=== PATIENT | male | born 1995 | race Two or more races ===

== ENCOUNTER 2017-05-10 09:05 | Observation (INO) | payer SELFPAY ==
[~2017-05-10] VITALS: Ht 177.8 cm; Wt 95.4 kg
--- NOTE | ~2017-05-10 | US77 ---
[facility] A Service of [facility] RADIOLOGY TEXT RESULTS PATIENT: TEETEE DUVALL LOCATION: [facility] 315 : 93 UNIT #: [id number] AGE: [address]: Daniela Salter MD SEX: M ORDER DR: [id number] [facility]. [place], [place] [address] [id number] I MR#: [id number] Acc #: [id number] NAME: TEETEE DUVALL : 1995 SEX: M STUDY DATE/TIME: 05/10/2017 17:21 UN[facility]OM: [facility] STUDY DESCRIPTION: US Kidney Bilateral Complete Attending Physician: Daniela Salter M.D. Ordering Physician: Ed Ramses Barahona M.D. Primary Care Physician: No Primary Care Physician MEDICAL IMAGING REPORT This report is preliminary unless electronic signature is present EXAMINATION Bilateral renal ultrasound. DATE 05/10/2017 HISTORY Abdominal pain for 2 days with nausea and vomiting. Acute renal insufficiency. BUN 32. GFR 17.6. COMPARISON CT abdomen and pelvis without contrast, 05/10/2017 at 11:52. FINDINGS Right kidney measures 5.4 x 11.3 x 5 cm. The left kidney measures 10.5 x 5.5 x 4.9 cm. Both kidneys maintain normal cortical thickness and echotexture. No cystic or solid renal mass, shadowing stone or hydronephrosis is seen on either side. Urinary bladder is distended with fluid and appears unremarkable. IMPRESSION Normal bilateral renal ultrasound. No hydronephrosis. Dictated by... Meghan Garcia M.D. THIS IS AN ELECTRONICALLY VERIFIED REPORT Meghan Garcia M.D. at 05/13/2017 8:[address] [facility]/andrey TD: 05/11/2017 13:43 JOB #: [id number] [facility] A Service of [facility] RADIOLOGY TEXT RESULTS PATIENT: TEETEE DUVALL LOCATION: [facility] 315 : 93 UNIT #: [id number] AGE: [address]: Daniela Salter MD SEX: M ORDER DR: MEDICAL IMAGING REPORT Page 1 of 1 COPY
--- NOTE | ~2017-05-10 | CT4 ---
[facility] A Service of [facility] & [facility] RADIOLOGY TEXT RESULTS PATIENT: TEETEE DUVALL LOCATION: [facility] 315-01 : [birth year] UNIT #: [id number] AGE: [address]: Daniela Salter MD SEX: M ORDER DR: [id number] [facility]. [place], [place] [address] [id number] I MR#: [id number] Acc #: [id number] NAME: TEETEE DUVALL : 1995 SEX: M STUDY DATE/TIME: 05/10/2017 11:52 UNIT: [facility] PCU ROOM: 315 STUDY DESCRIPTION: CT Abd and Pelv Wo Cont Attending Physician: Elba Leon M.D. Ordering Physician: Lucila Narvaez A.P.R.N. Primary Care Physician: No Primary Care Physician MEDICAL IMAGING REPORT This report is preliminary unless electronic signature is present EXAM CT abdomen and pelvis without contrast, 05/10/2017, 1152 hours. CLINICAL HISTORY 21-year-old man with complaint of 3-day history of right lower quadrant abdominal pain with nausea and vomiting. COMPARISON None TECHNIQUE Helical noncontrasted images were obtained from the lung bases through the pubic symphysis without intravenous contrast. Oral contrast was administered. Sagittal and coronal reconstructions were performed. Total exam DLP 1054 mGy-cm. This CT exam was performed with one or more of the following radiation dose reduction techniques: automatic exposure control, adjustment of mA and/or kV according to patient size, and iterative reconstruction. FINDINGS The lung bases are clear. There are no effusions. The distal esophagus is normal. Noncontrasted images through the abdomen demonstrate minimal low attenuation in the liver adjacent the falciform ligament, most consistent with focal fatty change. No other liver lesion is seen. The spleen and pancreas are normal. The gallbladder is distended without evidence of sludge, stones, or wall thickening. The adrenal glands are normal. The kidneys have a normal noncontrasted appearance. There are no renal or ureteral calculi. The bladder is normal. The stomach is not well opacified or distended but does appear normal. [facility] A Service of [facility] & [facility] RADIOLOGY TEXT RESULTS PATIENT: TEETEE DUVALL LOCATION: [facility] 315-01 : [birth year] UNIT #: [id number] AGE: [address]: Daniela Salter MD SEX: M ORDER DR: The small bowel is fairly well opacified. There a few areas where the small bowel is not well distended and the wall appears slightly prominent but I believe this is due to lack of distension rather than true underlying pathology. The terminal ileum, cecum, and appendix are normal. There is air and contrast material within the appendix. The colon is fairly well opacified. There is no colonic wall thickening. The sigmoid colon and rectum are unopacified. There is no definite wall thickening or distension. CT pelvis demonstrates a normal appearance to the bladder, seminal vesicles, and prostate. IMPRESSION 1. No definite acute findings in the abdomen or pelvis. 2. The gallbladder is distended with no stones, sludge, or wall thickening. The bile ducts and pancreas are normal. 3. The terminal ileum, cecum and appendix are normal. 4. There are loops of small bowel and portions of the right colon which contain oral contrast and are not completely well distended and give the appearance of wall thickening. I would favor that this is simply due to lack of distension/peristalsis rather than true bowel wall thickening although this is difficult to discriminate. Dictated by... Diandra Rodriguez M.D. THIS IS AN ELECTRONICALLY VERIFIED REPORT Diandra Rodriguez M.D. at 05/11/2017 3:27 PM [facility]/supa TD: 05/10/2017 17:23 JOB #: [id number] MEDICAL IMAGING REPORT Page 1 of 1 COPY
--- NOTE | ~2017-05-10 | CO ---
Unit #: [id number] #: [id number] Patient: TEETEE DUVALL [id number] [address] [place], [place] [address] [id number] I MR#: [id number] NAME: TEETEE DUVALL ROOM: 315 Age: 21 Sex: M Admission Date: 05/10/2017 : 1995 Attending Physician: Daniela Salter M.D. Primary Care Physician: Primary Care Physician No CONSULTATION REPORT REASON FOR CONSULTATION Acute kidney injury. The patient is 21-year-old male with a past medical history not significant except for the marijuana use. Otherwise healthy worker, who works in a construction, who presented with a 2-day history of nausea, vomiting, and poor intake along with weakness and he was found to have acute kidney injury for which we are consulted. HISTORY OF PRESENT ILLNESS The patient initially from [place] and had been in [facility] for 4 years. He works as a construction equipment mechanic helper. He is otherwise a healthy individual with no history of alcohol or smoking, but he does smoke marijuana. For the last two days, he had been having very poor intake due to vomiting and also complained of headache with a blurry vision. He has been feeling very weak and also some tightness in the muscle, for which he came to the hospital and he was found to have acute kidney injury. He denies any regular NSAID use, neither rashes or joint pain. Does accept of decreasing urine output. No history of hematuria or frothy urine in the past. No history of group home antibiotic use or any history of obstruction in the past. In the ER, he was found to have creatinine of 4.4, BUN of 32, potassium of 3.6, bicarbonate of 25, hemoglobin 13.6, platelets of 432. REVIEW OF SYSTEMS As discussed, complained of nausea and vomiting. He had around 8 to 9 episodes yesterday, which is much better. No history of chest pain. No history of shortness of breath. No history of unusual rashes. No joint pain. Does complain of headache. No weakness. No history of any ENT problem. No history of cough. No history of leg swelling. No history of any psych issues. PHYSICAL EXAMINATION VITAL SIGNS: Blood pressure 117/74, pulse was 88, respirations 16, temperature 99.3. GENERAL: Awake, alert, and oriented to time, place, and person, not in distress. RESPIRATORY: Bilaterally clear lungs. CARDIOVASCULAR: S1 heard and S2 heard. No murmur. ABDOMEN: Soft. Nontender. Nondistended. EXTREMITIES: May be trace edema. NEUROLOGIC: Grossly intact. DIAGNOSTIC STUDIES LABORATORY RESULTS: Glucose 141, BUN 32, creatinine 4.4, sodium 134, Unit #: [id number] #: [id number] Patient: TEETEE DUVALL potassium 3.6, chloride 88, bicarb 25, albumin 6.3. LFTs normal. Lipase 11, hemoglobin is 18.6, WBC 12.3, platelets 432. ASSESSMENT 1. Acute kidney injury, nonoliguric versus chronic kidney disease. Very likely he does have a prerenal component and very likely also ATN due to prolonged prerenal. His lab consistent with hemoconcentration with a very high hemoglobin, thrombocytosis and also hypercalcemia. 2. Hypercalcemia. 3. Hyponatremia. 4. Polycythemia. 5. Marijuana use. PLAN The patient looked to be dehydrated on examination as well as laboratory aguilera very hemoconcentrated with hypercalcemia, polycythemia, and thrombocytosis. Also history of nausea and massive vomiting for the last 2 days. Complains of dizziness and lightheadedness, consistent with orthostatic too. We will continue the IV fluids. He had gotten a bolus in the ER. We will continue normal saline 100 mL an hour. Currently hemodynamically stable. Strict input and output monitoring. The patient never had any kidney disease in the past that he is aware of, actually never had seen a doctor before. No family history of kidney problem though. No hypertension or diabetes in the family, but concern given his history of construction equipment mechanic helper and from the [place], might have some degree of chronic kidney disease in the past. We will evaluate his response with IV fluid resuscitation. We will check the urine. We will also workup for any underlying lupus, vasculitis, hepatitis. Also comprehensive studies to see if there is any blood, protein, rbc in the urine. Protein creatinine ratio. Ultrasound of the kidney. We will evaluate again tomorrow. If renal function does not improve with IV fluids or any reflux in the urinalysis or the serological workup that we might have to consider the biopsy too. Discussed with him in detail with the help of medical interpreter. He verbalized understanding. We will continue to follow strictly. Discussed with RN. Dictated by... Keyla Bridges/minh TD: 05/11/2017 13:45 JOB #: [id number] CONSULTATION REPORT Page 1 of 1 X MARLENA KELLER MD X CONSULTATION REPORT
--- NOTE | ~2017-05-10 | DS ---
Unit #: [id number] #: [id number] Patient: TEETEE DUVALL [id number] [place], [place] [address] [id number] I MR#: [id number] NAME: TEETEE DUVALL ROOM: 315 Age: 21 Sex: M Admission Date: 05/10/2017 : 1995 Discharge Date: 05/11/2017 Attending Physician: Daniela Salter M.D. Primary Care Physician: No Primary Care Physician DISCHARGE SUMMARY PRINCIPAL DIAGNOSES 1. Acute kidney injury, prerenal now resolved. Discharge creatinine 1.3. 2. Polycythemia secondary to severe dehydration now resolved. 3. Hypercalcemia secondary to severe dehydration now resolved. 4. Leukocytosis secondary to dehydration now resolved. 5. Marijuana use. CONSULTANTS [facility]. PROCEDURES 1. CT scan of abdomen and pelvis on 05/10/2017 with no acute findings. Gallbladder is distended without evidence of stones, sludge or wall thickening. Loops of small bowel and portions of right colon contain oral contrast. Not completely well distended. 2. Renal ultrasound, which was normal. No evidence of hydronephrosis. CLINICAL HISTORY AND HOSPITAL COURSE Mr. Duvall is a nice 21-year-old , Romansh speaking male who presents to the ER with abdominal pain and headache. In the emergency department, the patient is found to have a creatinine of 4.4 in addition to several other electrolyte abnormalities including hypercalcemia and elevated albumin and elevated white blood cell count. He was also found to have polycythemia. 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 He was subsequently admitted for further evaluation. Patient was placed on IV fluids and nephrology was consulted. This morning after hydration overnight, patient's creatinine has gone from 4.4 down to 1.3 and all of his associated complaints of fatigue, headaches, abdominal pain has resolved. He is tolerating a diet. Bilateral renal ultrasound was unremarkable. His elevated creatinine was simply secondary to dehydration, given creatinine is now normal. I think he can be safely discharged home. I have encouraged him to drink plenty of water at work. DISCHARGE CONDITION Stable. DISCHARGE STATUS Discharge to home. DISCHARGE MEDICATIONS None. Unit #: [id number] #: [id number] Patient: TEETEE DUVALL DISCHARGE INSTRUCTIONS Patient was instructed to follow a regular diet and to increase his food intake at work. He can increase his activity as tolerated. FOLLOWUP Patient can followup on a p.r.n. basis. Dictated by... Daniela Salter M.D. KRISTINA/david TD: 05/13/2017 09:26 JOB #: [id number] DISCHARGE SUMMARY Page 1 of 1 X Daniela Salter MD X DISCHARGE SUMMARY
--- NOTE | ~2017-05-10 | HP ---
Unit #: [id number] #: [id number] Patient: TEETEE DUVALL [id number] [place], [place] [address] [id number] MR#: [id number] NAME: TEETEE DUVALL ROOM: 315 Age: 21 Sex: M Admission Date: 05/10/2017 : 1995 Attending Physician: Teddy Leon M.D. Primary Care Physician: No Primary Care Physician HISTORY AND PHYSICAL CHIEF COMPLAINT Abdominal pain. HISTORY OF PRESENT ILLNESS The patient is a 21-year-old Croatian speaker, presented to the emergency room complaining of the abdominal pain for two says associated with a headache. The patient also complains of the painful urination with exertion. The patient was found to have an acute kidney injury with a creatinine of 4.4 and BUN 32 and is being admitted for the above reasons. The patient also states patient smokes marijuana and denies any IV drug abuse, denies any fever, denies any chills, denies any chest pain. The patient is being admitted for the above reasons. PAST MEDICAL HISTORY None. PAST SURGICAL HISTORY None. HOME MEDICATION None. ALLERGIES No known drug allergies. SOCIAL HISTORY No history of smoking cigarettes or drinking alcohol, positive for marijuana. FAMILY HISTORY Reviewed and none. REVIEW OF SYMPTOMS Positive for abdominal pain. Positive for decreased urination. Denies any fever, denies any chest pain and other systems have been reviewed and all other systems were negative. PHYSICAL EXAMINATION GENERAL APPEARANCE: On examination patient is lying on a bed not in acute distress. VITAL SIGNS: Temperature is 98.9, pulse 104, respiratory rate 18, blood pressure 140/100, sating 100% at room air. HEENT: Head atraumatic, normocephalic. Pupils equal, round and reacting Unit #: [id number] #: [id number] Patient: TEETEE DUVALL to light and accommodation. Extraocular movements are intact. NECK: Supple. LUNGS: Decreased air entry at the bases. HEART: Regular rate and rhythm. ABDOMEN: Soft, positive bowel sounds. Denies any flank pain. NEUROLOGIC: Alert, awake, oriented. No gross focal motor deficit. DIAGNOSTIC STUDIES LABORATORY DATA: Sodium 134, potassium 3.6, chloride 88, bicarb 25, glucose 141, BUN 32, creatinine 4.4, calcium is 11 and albumin is 6.3, lipase 11, amylase 32 and UA shows 1+ urine bacteria and 50 to 100 urine hyalin crystals and WBC is 12.3, hemoglobin 13.6, hematocrit 53.5, platelet is 432. IMAGING: CT of the abdomen shows no definite acute findings. Gallbladder distended; no sludge, no stones, or wall thickening. Thickening of the bowel wall that is related to the lack of peristalsis. ASSESSMENT 1. Abdominal pain. 2. Acute kidney injury. 3. Hyponatremia. PLAN 1. Plan to admit the patient to the observation with the telemetry. 2. Patient will be seen by the nephrology. 3. Continue with the IV fluids and check the renal ultrasound and check the urine toxicology and check the complement levels. 4. Further recommendations will follow as more lab results are available. Dictated by Keyla Kwan/scott TD: 05/10/2017 17:22 JOB #: [id number] HISTORY AND PHYSICAL Page 1 of 1 X TEDDY LEON MD X HISTORY AND PHYSICAL
[2017-05-10 10:10] LABS: BASOPHIL% 0.1 % (0-2.5); EOSINOPHIL% 0.1 % (0.0-7.0); HEMATOCRIT 53.5 % (38.0-50.0); HEMOGLOBIN 18.6 gm/dL (13.0-16.0); LYMPHOCYTE# 1.8 X10e3 (1.0-3.5); LYMPHOCYTE% 14.5 % (17.0-45.0); MEAN CELL VOLUME 92.1 FL (83-96); MEAN CORPUSCULAR HEMOGLOBIN 32.1 PG (28-34); MEAN CORPUSCULAR HGB CONC 34.8 g/dL (30-36); MEAN PLATELET VOLUME 7.9 FL (6.5-11.5); MONOCYTE% 8.1 % (3.0-12.0); NEUTROPHIL# 9.5 X10e3 (1.5-7.1); NEUTROPHIL% 77.2 % (40-75); PLATELET COUNT 432 X10e3 (140-420); RED BLOOD COUNT 5.81 X10e (3.90-5.60); RED CELL DISTRIBUTION WIDTH 12.7 % (11.0-15.5); WHITE BLOOD COUNT 12.3 X10e3 (4.0-10.5)
[2017-05-10 10:17] LABS: DIFF IND NO
[2017-05-10 11:04] LABS: ALBUMIN SERUM 6.3 g/dL (3.5-5.0); BILIRUBIN, DIRECT 0.1 mg/dL (0.0-0.2); BILIRUBIN,INDIRECT 0.5 mg/dL (0.0-0.9); BILIRUBIN,TOTAL 0.6 mg/dL (0.2-2.0); BUN/CREATININE RATIO 7.27; CREATININE SERUM 4.4 mg/dL (0.6-1.4); GLOM FILT RATE Estimated 17.6 mL/min (>60); POTASSIUM 3.6 mmol/L (3.5-5.1); PROTEIN TOTAL SERUM 10.6 g/dL (6.0-8.3)
[2017-05-10 11:53] LABS: URINE SOURCE CLEAN CATCH
[2017-05-10 12:02] LABS: URINE APPEARANCE CLOUDY; URINE BILIRUBIN NEG (NEG); URINE BLOOD 1+ (NEG); URINE COLOR DK YELLOW; URINE GLUCOSE NEG (NEG); URINE KETONE NEG (NEG); URINE LEUKOCYTE ESTERASE NEG (NEG); URINE NITRATE NEG (NEG); URINE PROTEIN 2+ (NEG); URINE SPECIFIC GRAVITY 1.024 (1.003-1.035); URINE UROBILINOGEN 0.2 MG/DL (NEG)
[2017-05-10 12:08] LABS: URINE SQUAMOUS EPITHELIAL CELL MOD /[HPF]
[2017-05-10 12:28] LABS: URINE MUCUS PRESENT
[2017-05-10 12:29] LABS: CULTURE INDICATED? YES; URINE BACTERIA AUWI 1+ (NEGATIVE)
[2017-05-10 12:43] LABS: URINE CRYSTALS CALCIUM OXALATE /[HPF]
[2017-05-10 12:47] LABS: U HYALINE CASTS AUWI 50-100 /[LPF]
[2017-05-10 18:06] LABS: URINE APPEARANCE CLEAR; URINE BILIRUBIN NEG (NEG); URINE BLOOD NEG (NEG); URINE COLOR YELLOW; URINE GLUCOSE NEG (NEG); URINE KETONE NEG (NEG); URINE LEUKOCYTE ESTERASE NEG (NEG); URINE NITRATE NEG (NEG); URINE PROTEIN TRACE (NEG); URINE SPECIFIC GRAVITY 1.015 (1.003-1.035); URINE UROBILINOGEN 0.2 MG/DL (NEG)
[2017-05-10 18:17] LABS: CREATININE,RANDOM URINE 165 mg/dL; TOTAL PROTEIN,RANDOM URINE 28 mg/dl (<10)
[2017-05-10 18:20] LABS: AMPHETAMINE NEG (NEG); BARBITURATES NEG (NEG); BENZODIAZEPINES NEG (NEG); COCAINE NEG (NEG); MARIJUANA POS (NEG); OPIATES POS (NEG); U METHADONE NEG (NEG)
[2017-05-10 18:21] LABS: TRICYCLIC ANTIDEPRESSANTS NEG (NEG)
[2017-05-11 04:53] LABS: HEMATOCRIT 43.1 % (38.0-50.0); MEAN CELL VOLUME 92.8 FL (83-96); MEAN CORPUSCULAR HEMOGLOBIN 32.3 PG (28-34); MEAN CORPUSCULAR HGB CONC 34.8 g/dL (30-36); MEAN PLATELET VOLUME 7.8 FL (6.5-11.5); RED BLOOD COUNT 4.65 X10e (3.90-5.60); RED CELL DISTRIBUTION WIDTH 12.5 % (11.0-15.5); WHITE BLOOD COUNT 9.2 X10e3 (4.0-10.5)
[2017-05-11 05:48] LABS: BUN/CREATININE RATIO 15.38; CALCIUM SERUM 9.1 mg/dL (8.4-10.2); CREATININE SERUM 1.3 mg/dL (0.6-1.4); GLOM FILT RATE Estimated 76.9 mL/min (>60)
[2017-05-14 08:36] LABS: COMPLEMENT C3 166 mg/dL (90-180); COMPLEMENT C4 52 mg/dL (16-47)
[2017-05-16 22:36] LABS: ANA SCREEN Negative (Negative); HEP B SURFACE AG Nonreactive (Nonreactive); HEP C AB (HEPPAN) Nonreactive (Nonreactive); HEP C AB SIGNAL TO CUTOFF 0.01 ratio (<1.00); MYELOPEROXIDASE AB (PNL) <1.0 AI (<1.0); PROTEINASE-3 AB (PNL) <1.0 AI (<1.0); SPE A1GLOB (PNL) 0.3 g/dL (0.2-0.3); SPE A2GLOB (PNL) 0.9 g/dL (0.5-0.9); SPE ALB (PNL) 4.5 g/dL (3.8-4.8); SPE BETA 1 GLOBULIN 0.5 g/dL (0.4-0.6); SPE BETA 2 GLOBULIN 0.4 g/dL (0.2-0.5); SPE GAMMA (PNL) 1.2 g/dL (0.8-1.7); SPETP (PNL) 7.8 g/dL (6.1-8.1)
== END 2017-05-11 13:21 | disposition home or self-care (01) | DRG 683 ==
LOC: CED 09:05 → CEDOF 13:00 → CED 13:00 → C3A PCU 13:00 → CED 13:16 → CEDOF 13:16 → C3A PCU 14:19 → CEDOF 14:19 → C3A PCU 05-11 05:26
PROVIDERS: Internal Medicine; Nurse Practitioner
DX: N17.9 Acute kidney failure, unspecified (principal); E86.0 Dehydration; D75.1 Secondary polycythemia; E83.52 Hypercalcemia; E87.1 Hypo-osmolality and hyponatremia; D72.829 Elevated white blood cell count, unspecified; F12.90 Cannabis use, unspecified, uncomplicated
CPT/HCPCS: 36415; 74176; 76770; 80048; 80076; 80307; 81003; 82150; 82570; 83520; 83690; 84156; 84165; 85025; 85027; 86021; 86038; 86039; 86160; 86803; 87086; 87340; 96361; 96372; 96374; 96375; 99285; C9113; G0378; J1650; J2270; J2405